=== PATIENT | male | born 1945 | race Hispanic/Latino ===

== ENCOUNTER → 2017-12-27 | Outpatient (CLI) | payer OTHER, MEDICARE | END | disposition home or self-care (01) | LOC: RAH 08:23 | PROVIDERS: ATTEND Internal Medicine | DX: K76.89 Other specified diseases of liver (principal) | CPT/HCPCS: 76700 ==

== ENCOUNTER → 2018-06-20 | Outpatient (CLI) | payer OTHER, MEDICARE | END | disposition home or self-care (01) | LOC: RAH 13:16 | PROVIDERS: ATTEND Internal Medicine | DX: R31.9 Hematuria, unspecified (principal) | CPT/HCPCS: 76856 ==

== ENCOUNTER → 2020-08-12 | Outpatient (CLI) | payer OTHER, MEDICARE | END | disposition home or self-care (01) | LOC: RAH 09:01 | PROVIDERS: ATTEND Internal Medicine | DX: N28.1 Cyst of kidney, acquired (principal) | CPT/HCPCS: 76700 ==

== ENCOUNTER → 2024-02-19 | Outpatient (CLI) | payer OTHER, MEDICARE ==
--- NOTE | 2024-02-19 14:27 | HMCIMG ---
US RENAL SONOGRAM HISTORY: Urinary tract symptoms COMPARISON: None TECHNIQUE: Renal and bladder ultrasound study was performed. FINDINGS: The right kidney measures 10.2 x 5.2 x 4.7 cm. The left kidney measures 10.3 x 5.8 x 5.6 cm. No evidence of hydronephrosis is seen of either kidney. Both kidneys are seen. Bladder is moderately distended. There is simple left renal cyst measuring 17 x 17 x 19 mm. Bladder is moderately distended. Bladder wall measures 3 mm. Prevoid bladder volume is 162 cc. Post void bladder volume is 11.4 cc. Prostate volume is 26.7 cc. IMPRESSION: 1. No hydronephrosis is seen. Simple left renal cyst.
== END | disposition home or self-care (01) ==
LOC: RAH 12:24
PROVIDERS: ATTEND Internal Medicine
DX: N28.1 Cyst of kidney, acquired (principal); N40.1 Benign prostatic hyperplasia with lower urinary tract symptoms; N32.89 Other specified disorders of bladder
CPT/HCPCS: 76770